=== PATIENT | female | born 1955 | race Caucasian/White ===

== ENCOUNTER 2025-01-24 19:53 | Emergency (ER) | payer MEDICARE, BC ==
[~2025-01-24] VITALS: Ht 167.6 cm; Wt 71.2 kg
[2025-01-24 20:04] VITALS: BP 146/83; PULSE 79; RESP 16; TEMP 97.8; O2SAT 97
--- NOTE | 2025-01-24 21:43 | Physician Documentation ---
History of Present Illness ~ Chief Complaint: Bite-insect Stated Complaint: BUG BIT Time Seen by MD: 21:15 HPI Patient is seen today with complaints of an itchy skin lesion of her left inner thigh just proximal to her knee. Patient states she was out working in the [employer] in the [employer] a few days ago and feels something may have curled up her leg and better. Patient denies any significant pain of her left leg. She denies any fevers or chills and has no other concern or complaint at this time. Medication Reconciliation Allergies: Coded Allergies: No Known Allergies (Unverified , 01/24/25) Review of Systems Constitutional: Denies: chills, fever, weakness Eyes: Denies: pain, blurred vision ENT: Denies: ear pain, nose pain, throat pain, mouth pain Respiratory: Denies: cough, shortness of breath Cardiovascular: Denies: chest pain, palpitations Gastrointestinal: Denies: abdominal pain, nausea, vomiting Genitourinary: Denies: burning, dysuria Female Genitalia: Denies: vaginal discharge, pelvic pain Neurological: Denies: headache, dizziness Musculoskeletal: Denies: pain, swelling Integumentary: Denies: rash, lesions Allergic/Immunologic: Denies: hives, itching Hematologic/Lymphatic: Denies: no symptoms reported Psychiatric: Denies: depression, anxiety Physical Exam Vital Signs: Temperature: 97.8, Heart Rate: 79, Respiratory Rate: 16, BP: 146/83, Pulse Oximetry: 97, Weight: 71.200 Physical Exam General: Awake and Alert, no acute distress. HEENT: Conjunctiva pink, Sclera clear, Mucus Membranes moist. Neck: Supple without masses and tenderness. Resp: Unlabored. Lungs clear to auscultation bilaterally. Heart: Regular Rate and rhythm, normal S1 and S2 without murmur, rub or gallop. Abdomen: Soft and non tender no organomegaly Extremities: No cyanosis,clubbing or edema. Skin: Warm and Dry. Progress Results/Orders Results/Orders Vital Signs 01/24/25 20:04 Temp 97.8 Pulse 79 Resp 16 B/P (MAP) 146/83 Pulse Ox 97 Medical Decision Making Findings Patient is seen today with complaints of an itchy skin lesion of her left inner thigh just proximal to her knee. Patient states she was out working in [place] [employer] in the [place] a few days ago and feels something may have curled up her leg and better. Patient denies any significant pain of her left leg. She denies any fevers or chills and has no other concern or complaint at this time. Patient was given Decadron 10 mg IM in the ED tonight, along with Medrol Dosepak sent to patient's pharmacy. Patient will follow up with primary care in 2-5 days if no better as needed sooner. Return to ED with any worsening, concerning or changing symptoms. Continue Benadryl at home as needed. Departure Disposition: / SELF CARE / HOMELESS Impression: Primary Impression: Localized hives Additional Impression: Allergic reaction Qualified Codes: T78.40XA - Allergy, unspecified, initial encounter Condition: Stable Discharge Instructions: Insect Bite, Adult, [place] Additional Instructions: Patient was given Decadron 10 mg IM in the ED tonight, along with Medrol Dosepak sent to patient's pharmacy. Patient will follow up with primary care in 2-5 days if no better as needed sooner. Return to ED with any worsening, concerning or changing symptoms. Continue Benadryl at home as needed. Referrals: NO PRIMARY CARE PROVIDER (PCP) Prescriptions Methylprednisolone (Medrol Dosepak) 4 Mg Tab.ds.pk 0 PO UD, #21 TAB 0 Refills take 6 Pills Day 1, 5 Pills Day 2, 4 Pills Day 3, 3 Pills Day 4, 2 Pills Day 5 and 1 pill Day 6 Prov: YOVANA KING 01/24/25 Signature Scribe Signature: No scribe Attestation: No scribe YOVANA KING PAC Jan 24, 2025 21:43
[2025-01-24] MEDS ORDERED: METH4TAB81 PO (21:47)
[2025-01-24] MEDS: dexamethasone sod phosphate 10mg/ml inj IM STA (22:03)
== END 2025-01-24 22:05 | disposition home or self-care (01) ==
LOC: ER 19:55
DX: L50.0 Allergic urticaria (principal)
CPT/HCPCS: 96372; 99283; J1100